=== PATIENT | female | born 1950 | race Caucasian/White ===

== ENCOUNTER 2018-07-13 10:57 | Outpatient (CLI) | payer MEDICARE, BC | END 2018-07-13 10:58 | disposition home or self-care (01) | DRG 558 | LOC: CONVCARE 10:57 | PROVIDERS: ATTEND Orthopaedic Surgery | DX: M67.48 Ganglion, other site (principal) | CPT/HCPCS: 73140 ==

== ENCOUNTER 2018-07-21 06:38 | Day surgery (SDC) | payer MEDICARE, BC ==
[2018-07-21 06:14] VITALS: RESP 16
[2018-07-21] MEDS ORDERED: LIDOCAINE HCL 2% MPF 10 ML SOL ONE (06:56)
[2018-07-21] MEDS ORDERED: BUPIVACAINE HCL 0.5% MPF 10 ML SOL ONE (06:57)
[2018-07-21 07:47] VITALS: PULSE 62; TEMP 98.7; O2SAT 98
[2018-07-21 08:03] VITALS: BP 201/92
== END 2018-07-21 08:20 | disposition home or self-care (01) | DRG 556 ==
LOC: SURG 06:38
PROVIDERS: ATTEND Orthopaedic Surgery
DX: M25.842 Other specified joint disorders, left hand (principal); M67.442 Ganglion, left hand